=== PATIENT | male | born 1970 | race Caucasian/White ===

== ENCOUNTER 2018-01-19 05:12 | Day surgery (SDC) | payer OTHER ==
[~2018-01-19] VITALS: Ht 172.7 cm; Wt 72.6 kg
--- NOTE | ~2018-01-19 | OP ---
PATIENT NAME: SANTIAGO HERNANDEZ MEDICAL RECORD: [id number] :68 [facility] AD[facility] DATE: SURGEON: ANDRY CASILLAS MD DATE OF OPERATION: 01/19/2018 PREOPERATIVE DIAGNOSIS: Symptomatic large right inguinal hernia. POSTOPERATIVE DIAGNOSIS: Symptomatic large right indirect inguinal hernia. PROCEDURE: Open right indirect inguinal hernia repair with bilayered polypropylene preperitoneal mesh. SURGEON: Andry Casillas MD GLUER MACHINE OPERATOR: None. BLOOD LOSS: Minimal. ANESTHESIA: General. COMPLICATIONS: None. The patient was seen preoperatively. The site was marked. We again reviewed the planned operative procedure as well as the possible risks and alternatives to the procedure. OPERATIVE COURSE: The patient was conveyed to the operating room electively on 01/19/2018. General anesthesia was induced by the anesthesia staff. The abdomen and genitals were sterilely prepped and draped. A transverse incision was accomplished in the right groin. Sharp dissection was carried down through skin, subcutaneous tissue, and Gunner fascia. I then sharply cleaned the connective tissue from the underlying external oblique aponeurosis. I incised the external oblique aponeurosis. I bluntly dissected down through the internal oblique and transversus abdominis muscles. A preperitoneal pocket was fashioned bluntly. An indirect hernia was reduced in its entirety. I opened the hernia defect. There was a sliding component to the hernia defect. I then ligated the hernia sac above this sliding portion. I then transected the hernia sac distal to this. Once I was satisfied with the preperitoneal dissection, I cut 2 ovals out of a polypropylene mesh. The 2 ovals were sutured together one on top of the other with a running #1 Surgidac. I then placed the mesh in the preperitoneal space. Once I was satisfied with placement of the mesh, I allowed the internal oblique and transversus abdominis muscle layers to close incorporating portion of the underlying mesh. The external oblique aponeurosis was closed with running #1 Vicryls. Gunner fascia was approximated with interrupted 3-0 Vicryls. The subdermis was approximated with interrupted 3-0 Vicryls. The skin was approximated with a running intracuticular 4-0 Vicryl. Benzoin and Steri-Strips were applied. The patient was then extubated and conveyed to the post-anesthesia care unit where he was in stable condition. He will be dismissed back to the intermediate. I will see him on a p.r.n. basis. He will need to follow up with me if he has a complication related to this operative procedure. OPERATIVE REPORT [id number] SANTIAGO HERNANDEZ TRANSINT:[id number] Voice Confirmation ID: [id number] DOCUMENT ID: [id number] ANDRY CASILLAS MD at 1157 CC: [id number] DICTATION DATE: 01/19/18 1210 SILVERLIGHT DEVELOPER: 01/19/18 1241 [facility] [place] 01/19/18 [id number] [place] [address]
--- NOTE | ~2018-01-19 | HP ---
PATIENT: SANTIAGO HERNANDEZ MEDICAL RECORD: [id number] ACCOUNT: [id number] LOCATION:[facility] : 68 ADMISSION DATE: 01/19/18 HISTORY AND PHYSICAL EXAMINATION CHIEF COMPLAINT: Hernia. HISTORY OF PRESENT ILLNESS: I saw [facility] in consultation at the [facility]. He has a large reducible symptomatic right inguinal hernia. It is a right inguinal scrotal hernia. We have discussed the risks, possible complications, and alternatives to the procedure including the risk of chronic pain, hernia recurrence, the probability of a pseudo sac hematoma or seroma. We also discussed the possibility of mesh infection, chronic pain, and nerve injury. A history and physical is on the chart. TRANSINT:[id number] Voice Confirmation ID: [id number] DOCUMENT ID: [id number] ANDRY CASILLAS MD at 1157 CC: [id number] DICTATION DATE: 01/19/18 1016 CUSTOMS COMPLIANCE DIRECTOR: 01/19/18 1023 [facility] 01/19/18 [id number] [place] [address]
[2018-01-19] MEDS ORDERED: GLUCOPHAGE500 MG PO (06:14)
[2018-01-19] MEDS ORDERED: BENZTROPINE MESY2 MG PO (06:15)
[2018-01-19] MEDS ORDERED: NORVASC10 MG PO (06:22)
[2018-01-19] MEDS ORDERED: BENZTROPINE MESY1 MG PO (06:23)
[2018-01-19] MEDS ORDERED: ZESTRIL40 MG PO (06:24)
[2018-01-19] MEDS ORDERED: HALDOL DECA100 MG/M1 IM (06:24)
[2018-01-19 06:26] VITALS: BP 125/77; Ht 172.7 cm; Wt 72.6 kg
[2018-01-19 07:11] LABS: HEMATOCRIT 37.6 % (42.0-54.0); HEMOGLOBIN 13.8 g/dL (13.5-17.5); MCH 32.5 pg (26.0-34.0); MCHC 36.7 g/dL (31.0-37.0); MCV 88.5 fL (80.0-100.0); RBC 4.25 10x6/uL (4.20-6.10); RDW 12.2 % (11.5-14.5); WBC 8.9 10x3/uL (4.8-10.8)
== END 2018-01-19 15:28 | disposition home or self-care (01) ==
LOC: D.OPS 05:12
PROVIDERS: Anesthesiology
DX: K40.90 Unilateral inguinal hernia, without obstruction or gangrene, not specified as recurrent (principal); Z01.812 Encounter for preprocedural laboratory examination